=== PATIENT | female | born 1985 | race Two or more races ===

== ENCOUNTER 2022-01-27 12:09 | Emergency (ER) | payer OTHER ==
[~2022-01-27] VITALS: Ht 167.6 cm; Wt 72.6 kg
[2022-01-27 12:11] VITALS: BP 144/93
[2022-01-27] MEDS ORDERED: ACETAMINOPHEN 500 MG TAB PO ONE (12:45)
[2022-01-27] MEDS ORDERED: ACET-1080 PO (13:25)
== END 2022-01-27 13:30 | disposition home or self-care (01) ==
LOC: ER 12:09
DX: S00.03XA Contusion of scalp, initial encounter (principal); J45.909 Unspecified asthma, uncomplicated; Z98.51 Tubal ligation status; Y04.2XXA Assault by strike against or bumped into by another person, initial encounter; Y93.89 Activity, other specified; Y92.89 Other specified places as the place of occurrence of the external cause; Y99.8 Other external cause status
CPT/HCPCS: 70450